=== PATIENT | male | born 1985 | race Caucasian/White ===

== ENCOUNTER 2024-01-05 11:42 | Emergency (ER) | payer OTHER ==
[~2024-01-05] VITALS: Ht 177.8 cm; Wt 86.6 kg
[~2024-01-05 11:42] MED LIST: AMOX TR-K CLV1 EAC1 PO; BUPRENORPHIN-N1 EACH SL; IBU800 MG PO; METHADONE H5 MG/5 ML PO; PAROXETINE HCL40 MG PO
--- OUTSIDE RECORDS SUMMARY | 2024-01-05 11:49 | XMS ---
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 - Patient eloped before treatment completed. - Patient with suicidal and/or homicidal ideations eloped. Details: Patient LWBS. CRITERIA MET - Group Notification - [facility] - 2 Visits in 30 Days CARE PROVIDERS -, Don Dental+ Dentist: Local Superintendent [facility] PHONE: [phone] -[place]- Dentist: Local Superintendent Pending Sale To [facility] PHONE: [phone] MANA BERNSTEIN Counselor: Mental Health Current PHONE: [phone] [place] PRIMARY Clinic/Center: Primary Care [facility] PHONE: [phone] [facility] PHONE: [phone] Emily has no Care Guidelines for this patient. ESantos VISIT COUNT (12 MO.) 4 [facility] [place] TOTAL 4 NOTE: Visits indicate total known visits. 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 [place] TYPE: Emergency COMPLAINT: - WITHDRAWAL INPATIENT VISIT TRACKING (12 MO.) No inpatient visits to display in this time frame [id number]
[2024-01-05 12:31] LABS: BASOPHILS 0.7 % (0-2); EOSINOPHILS 1.4 % (0-6); HEMATOCRIT 38.6 % (35.0-50.0); HEMOGLOBIN 12.9 g/dL (12.0-18.0); LYMPHOCYTES 23.1 % (24-44); MCH 28.7 (27-36); MCHC 33.4 g/dl (30-36); MCV 86.1 fl (81-99); NEUTROPHILS 67.8 % (39-80); PLATELET COUNT 313 K/uL (140-440); RBC 4.48 M/ul (4.3-5.7); RDW 13.3 (10.5-15.0)
[2024-01-05 12:54] LABS: ACETAMINOPHEN 0 ug/mL (10-30); ALBUMIN 3.3 g/dL (3.4-5.0); ALCOHOL, MEDICAL <3 ng/dL (<3); ALKALINE PHOSPHATASE 110 U/L (46-116); ALT (SGPT) 25 U/L (14-59); ANION GAP 9.6 (7-21); AST (SGOT) 15 U/L (15-37); BILIRUBIN, TOTAL 0.2 ng/dL (0.2-1.0); BUN/CREATININE RATIO 21.59 (6.0-28.6); CALCIUM 8.9 mg/dL (8.5-10.1); CARBON DIOXIDE 32 mmol/L (21-32); CHLORIDE 105 mmol/L (98-107); CREATININE, SERUM 0.88 mg/dL (0.70-1.30); GLOMERULAR FILTRATION RATE,EST 111 mL/min (>60); POTASSIUM 4.6 mmol/L (3.5-5.1); PROTEIN, TOTAL 6.6 g/dL (6.4-8.2); SALICYLATE 1.4 mg/dL (2.8-20.0); TSH, 3RD GENERATION 0.749 uIU/mL (0.358-3.740); UREA NITROGEN 19 mg/dL (7-18)
[2024-01-05 15:24] LABS: BILIRUBIN, URINE NEGATIVE (negative); BLOOD/HGB, URINE NEGATIVE (Negative); KETONE, URINE NEGATIVE (Negative); LEUK ESTERASE, URINE NEGATIVE (negative); NITRITE, URINE NEGATIVE (negative); PH, URINE 5.5 (5-7)
[2024-01-05 15:58] LABS: AMPHETAMINES, URINE NEGATIVE (NEGATIVE); BARBITURATES, URINE NEGATIVE (NEGATIVE); BENZODIAZEPINE, URINE NEGATIVE (NEGATIVE); BUPRENORPHINE, URINE NEGATIVE (NEGATIVE); CANNABINOID, URINE NEGATIVE (NEGATIVE); COCAINE, URINE NEGATIVE (NEGATIVE); FENTANYL, URINE NEGATIVE (NEGATIVE); METHADONE, URINE POSITIVE (NEGATIVE); OPIATES, URINE NEGATIVE (NEGATIVE); OXYCODONE, URINE NEGATIVE (NEGATIVE); PHENCYCLIDINE, URINE NEGATIVE (NEGATIVE)
[2024-01-05 16:17] LABS: ECSTASY, URINE NEGATIVE (NEGATIVE)
[2024-01-06] MEDS ORDERED: METHADONE H5 MG/5 ML PO (02:28)
[2024-01-06] MEDS ORDERED: METHADONE HCL 10 MG TAB PO ONE ×2 (02:30→08:00)
[2024-01-06 09:48] VITALS: BP 102/61
--- NOTE | 2024-01-06 12:00 | EKG ---
[facility] [address] [facility] [place], [place] [address] Signed Sinus bradycardia Rightward axis Borderline ECG No previous ECGs available Confirmed by Jacqueline Denton MD ([id number]) on 01/06/2024 12:00:11 PM Electronically Signed By: JACQUELINE DENTON DO 01/06/24 1200 PATIENT NAME: CROW GU Electrocardiogram DATE OF : 81 PHYSICIAN: JACQUELINE DENTON DO REPORT #: [id number] REPORT IS CONFIDENTIAL AND NOT TO BE RELEASED WITHOUT AUTHORIZATION
== END 2024-01-06 09:48 ==
LOC: ED 11:42
PROVIDERS: Emergency Medicine
DX: R45.851 Suicidal ideations (principal); Z00.8 Encounter for other general examination; Z88.6 Allergy status to analgesic agent; Z79.899 Other long term (current) drug therapy; Z11.52 Encounter for screening for COVID-19
CPT/HCPCS: 36415; 80053; 80307; 81003; 84443; 85025; 93005; 93010; 94640; 99285; G0480; U0002

== ENCOUNTER 2024-01-23 11:01 | Emergency (ER) | payer OTHER ==
[~2024-01-23] VITALS: Ht 177.8 cm; Wt 90.0 kg
--- OUTSIDE RECORDS SUMMARY | 2024-01-23 11:05 | XMS ---
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 - Patient eloped before treatment completed. - Patient with suicidal and/or homicidal ideations eloped. Details: Patient LWBS. CRITERIA MET - Group Notification - [facility] - 2 Visits in 30 Days CARE PROVIDERS -, Don Dental+ Dentist: Stock Digger [facility] PHONE: [phone] -[place]- Dentist: Stock Digger [facility] PHONE: [phone] MANA BERNSTEIN Counselor: Mental Health Current PHONE: [phone] [place] PRIMARY Clinic/Center: Primary Care [facility] PHONE: [phone] [facility] PHONE: [phone] Emily has no Care Guidelines for this patient. ESantos VISIT COUNT (12 MO.) 5 [facility] [place] TOTAL 5 NOTE: Visits indicate total known visits. ED/UCC VISIT TRACKING (12 MO.) 01/23/2024 11:01 [facility] [place] TYPE: Emergency COMPLAINT: - SUICIDAL IDEATIONS 01/05/2024 11:43 [facility] [place] TYPE: Emergency COMPLAINT: - MEDICAL CLEARANCE DIAGNOSES: - Allergy status to analgesic agent - Depression, unspecified - Encounter for other general examination - Encounter for screening for COVID-19 - Other longterm (current) drug therapy - Suicidal ideations 12/31/2023 23:13 [facility] [place] TYPE: Emergency COMPLAINT: - TOOTH PAIN DIAGNOSES: - Allergy status to analgesic agent - Other longterm (current) drug therapy - Other specified disorders of teeth and supporting structures - Periapical abscess without sinus - Suicidal ideations 11/08/2023 00:44 [facility] [place] TYPE: Emergency COMPLAINT: - DENTAL PROBLEM DIAGNOSES: - Allergy status to analgesic agent - Other terminal computer operator (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
[2024-01-23] MEDS ORDERED: PROZAC40 MG PO (11:13)
[2024-01-23] MEDS ORDERED: AMOXICILLIN/CLAVULANATE K 875 MG TAB PO ONE (11:45)
[2024-01-23 11:56] LABS: BILIRUBIN, URINE NEGATIVE (negative); BLOOD/HGB, URINE NEGATIVE (Negative); KETONE, URINE NEGATIVE (Negative); LEUK ESTERASE, URINE NEGATIVE (negative); NITRITE, URINE NEGATIVE (negative)
[2024-01-23 12:02] LABS: BASOPHILS 0.7 % (0-2); EOSINOPHILS 2.1 % (0-6); HEMATOCRIT 37.1 % (35.0-50.0); HEMOGLOBIN 12.5 g/dL (12.0-18.0); LYMPHOCYTES 23.8 % (24-44); MCHC 33.7 g/dl (30-36); MCV 86.1 fl (81-99); MONOCYTES 7.6 % (0-12); NEUTROPHILS 65.8 % (39-80); PLATELET COUNT 277 K/uL (140-440); RBC 4.31 M/ul (4.3-5.7); RDW 13.5 (10.5-15.0)
[2024-01-23 12:07] LABS: AMPHETAMINES, URINE NEGATIVE (NEGATIVE); BARBITURATES, URINE NEGATIVE (NEGATIVE); BENZODIAZEPINE, URINE NEGATIVE (NEGATIVE); BUPRENORPHINE, URINE NEGATIVE (NEGATIVE); CANNABINOID, URINE NEGATIVE (NEGATIVE); COCAINE, URINE NEGATIVE (NEGATIVE); ECSTASY, URINE NEGATIVE (NEGATIVE); FENTANYL, URINE NEGATIVE (NEGATIVE); METHADONE, URINE POSITIVE (NEGATIVE); OPIATES, URINE NEGATIVE (NEGATIVE); OXYCODONE, URINE NEGATIVE (NEGATIVE); PHENCYCLIDINE, URINE NEGATIVE (NEGATIVE)
[2024-01-23 12:25] LABS: ACETAMINOPHEN 0 ug/mL (10-30); ALBUMIN 3.2 g/dL (3.4-5.0); ALBUMIN/GLOBULIN RATIO 0.97 (1.1-2.4); ALCOHOL, MEDICAL <3 ng/dL (<3); ALKALINE PHOSPHATASE 125 U/L (46-116); ALT (SGPT) 77 U/L (14-59); ANION GAP 10.4 (7-21); AST (SGOT) 31 U/L (15-37); BILIRUBIN, TOTAL 0.2 ng/dL (0.2-1.0); CARBON DIOXIDE 32 mmol/L (21-32); CHLORIDE 105 mmol/L (98-107); GLOMERULAR FILTRATION RATE,EST 115 mL/min (>60); POTASSIUM 4.4 mmol/L (3.5-5.1); PROTEIN, TOTAL 6.5 g/dL (6.4-8.2); TSH, 3RD GENERATION 0.709 uIU/mL (0.358-3.740); UREA NITROGEN 28 mg/dL (7-18)
[2024-01-23] MEDS ORDERED: NICOTINE POLACRILEX 4 MG LOZENGE BUCCAL PRN (14:00)
[2024-01-23] MEDS ORDERED: NICOTINE 21 MG/24 HR 1 EA TDSY TD ONE (14:00)
[2024-01-23] MEDS ORDERED: ZOLPIDEM TARTRATE 5 MG TAB PO ONE (22:00)
[2024-01-24] MEDS ORDERED: FLUOXETINE HCL 20 MG CAP PO SCH (10:33)
[2024-01-24] MEDS ORDERED: METHADONE HCL 10 MG TAB PO SCH (10:33)
[2024-01-24] MEDS ORDERED: AMOXICILLIN 500 MG CAP PO SCH (15:00)
[2024-01-24 15:06] VITALS: BP 121/75
--- NOTE | 2024-01-24 20:28 | EKG ---
[facility] [address] [facility] [place], [place] [address] Signed Sinus bradycardia Otherwise normal ECG When compared with ECG of 05-JAN-2024 12:14, No significant change was found Confirmed by Bladimir Lopez MD ([id number]) on 01/24/2024 8:28:00 PM Electronically Signed By: BLADIMIR LOPEZ MD 01/24/242027 PATIENT NAME: CROW GU Electrocardiogram DATE OF : 81 PHYSICIAN: BLADIMIR LOPEZ MD REPORT #: [id number] REPORT IS CONFIDENTIAL AND NOT TO BE RELEASED WITHOUT AUTHORIZATION
== END 2024-01-24 15:09 ==
LOC: ED 11:01
PROVIDERS: Emergency Medicine
DX: R45.851 Suicidal ideations (principal); K04.7 Periapical abscess without sinus; Z88.6 Allergy status to analgesic agent; Z79.899 Other long term (current) drug therapy
CPT/HCPCS: 36415; 80053; 80307; 81003; 84443; 85025; 93005; 93010; 99285; G0480; U0002

== ENCOUNTER 2024-02-23 20:48 | Emergency (ER) | payer OTHER ==
[~2024-02-23] VITALS: Ht 177.8 cm; Wt 98.0 kg
[~2024-02-23 20:48] MED LIST changes: +PROZAC40 MG PO
--- OUTSIDE RECORDS SUMMARY | 2024-02-23 20:54 | XMS ---
PreManage Notification: CROW GU Security Crna Events 1 event(s) in the past 18 months Most recent security events: Elopement at [facility] 04/27/2023 11:55 - Patient eloped with IV in place. - Patient eloped before treatment completed. - Patient with suicidal and/or homicidal ideations eloped. Details: Patient LWBS. CRITERIA MET - Group Notification CARE PROVIDERS -, Don Dental+ Dentist: Email Marketing Assistant [facility] PHONE: [phone] -, [place]- Dentist: Email Marketing Assistant [facility] PHONE: [phone] MANA BERNSTEIN Counselor: Mental Health Current PHONE: [phone] [place] PRIMARY Clinic/Center: Primary Care [facility] PHONE: [phone] [facility] PHONE: [phone] Emily has no Care Guidelines for this patient. Lana VISIT COUNT (12 MO.) 6 А[facility]РЕЙ [place] TOTAL 6 NOTE: Visits indicate total known visits. ED/C VISIT TRACKING (12 MO.) 02/23/2024 20:48 [facility] [place] TYPE: Emergency COMPLAINT: - COLD SYMPTOMS 01/23/2024 11:01 [facility] [place] TYPE: Emergency COMPLAINT: - SUICIDAL IDEATIONS DIAGNOSES: - Allergy status to analgesic agent - Other tin worker (current) drug therapy - Periapical abscess without sinus - Suicidal ideations 01/05/2024 11:43 [facility] [place] TYPE: Emergency COMPLAINT: - MEDICAL CLEARANCE DIAGNOSES: - Allergy status to analgesic agent - Depression, unspecified - Encounter for other general examination - Encounter for screening for COVID-19 - Other tin worker (current) drug therapy - Suicidal ideations 12/31/2023 23:13 [facility] [place] TYPE: Emergency COMPLAINT: - TOOTH PAIN DIAGNOSES: - Allergy status to analgesic agent - Other tin worker (current) drug therapy - Other specified disorders of teeth and supporting structures - Periapical abscess without sinus - Suicidal ideations 11/08/2023 00:44 [facility] [place] TYPE: Emergency COMPLAINT: - DENTAL PROBLEM DIAGNOSES: - Allergy status to analgesic agent - Other correction (current) drug therapy - Other specified disorders of teeth and supporting structures - Periapical abscess without sinus 04/27/2023 11:55 [facility] [place] TYPE: Emergency COMPLAINT: - WITHDRAWAL INPATIENT VISIT TRACKING (12 MO.) No inpatient visits to display in this time frame [id number]
[2024-02-23] MEDS ORDERED: AMOXICILLIN/CLAVULANATE K 875 MG HOME.PACK PO ONE (21:30)
[2024-02-23 21:45] VITALS: BP 167/82
== END 2024-02-23 21:40 | disposition home or self-care (01) ==
LOC: ED 20:48
DX: K04.7 Periapical abscess without sinus (principal); Z88.6 Allergy status to analgesic agent; Z79.899 Other long term (current) drug therapy
CPT/HCPCS: 99282

== ENCOUNTER 2024-03-12 16:27 | Emergency (ER) | payer OTHER ==
[~2024-03-12] VITALS: Ht 177.8 cm; Wt 103.0 kg
--- OUTSIDE RECORDS SUMMARY | 2024-03-12 16:33 | XMS ---
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 - Patient eloped before treatment completed. - Patient with suicidal and/or homicidal ideations eloped. Details: Patient LWBS. CRITERIA MET - 6 ED Visits in 6 Months - Group Notification - [facility] - 2 Visits in 30 Days CARE PROVIDERS MANA BERNSTEIN Counselor: Mental Health Current PHONE: [phone] LILI[place] PRIMARY Clinic/Center: Primary Care [facility] CARE CLINIC PHONE: [phone] DAMARIS [facility] Current PHONE: [phone] Emily has no Care Guidelines for this patient. Lana VISIT COUNT (12 MO.) 7 А[facility]ДРЕЙ [place] TOTAL 7 NOTE: Visits indicate total known visits. ED/UCC VISIT TRACKING (12 MO.) 03/12/2024 16:27 [facility] [place] TYPE: Emergency COMPLAINT: - DENTAL PAIN 02/23/2024 20:48 [facility] [place] COMPLAINT: - COLD SYMPTOMS DIAGNOSES: - Allergy status to analgesic agent - Fever, unspecified - Headache, unspecified - Other lesions of oral mucosa - Other correction (current) drug therapy - Periapical abscess without sinus 01/23/2024 11:01 [facility] [place] COMPLAINT: - SUICIDAL IDEATIONS DIAGNOSES: - Allergy status to analgesic agent - Other roasterman (current) drug therapy - Periapical abscess without sinus - Suicidal ideations 01/05/2024 11:[address] [facility] [place] TYPE: Emergency COMPLAINT: - MEDICAL CLEARANCE DIAGNOSES: - Allergy status to analgesic agent - Depression, unspecified - Encounter for other general examination - Encounter for screening for COVID-19 - Other roasterman (current) drug therapy - Suicidal ideations 12/31/2023 23:[address] [facility] [place] TYPE: Emergency COMPLAINT: - TOOTH PAIN DIAGNOSES: - Allergy status to analgesic agent - Other roasterman (current) drug therapy - Other specified disorders of teeth and supporting structures - Periapical abscess without sinus - Suicidal ideations 11/08/2023 00:44 [facility] [place] TYPE: Emergency COMPLAINT: - DENTAL PROBLEM DIAGNOSES: - Allergy status to analgesic agent - Other correction (current) drug therapy - Other specified disorders of teeth and supporting structures - Periapical abscess without sinus 04/27/2023 11:55 [facility] [place] TYPE: Emergency COMPLAINT: - WITHDRAWAL INPATIENT VISIT TRACKING (12 MO.) No inpatient visits to display in this time frame [email or web address]
[2024-03-12] MEDS ORDERED: KETOROLAC TROMETHAMINE 60 MG/2 ML VIAL IM ONE (18:15)
[2024-03-12] MEDS ORDERED: AMOXICILLIN/CLAVULANATE K 875 MG TAB PO ONE (18:15)
[2024-03-12] MEDS ORDERED: AMOX TR-K CLV1 EAC1 PO (18:26)
[2024-03-12] MEDS ORDERED: KETOROLAC TROME10 MG PO (18:26)
[2024-03-12 18:31] VITALS: BP 131/80
[2024-03-13] MEDS ORDERED: AMOXICILLIN/CLAVULANATE K 875 MG TAB PO SCH (08:00)
== END 2024-03-12 18:32 | disposition home or self-care (01) ==
LOC: ED 16:27
DX: K04.7 Periapical abscess without sinus (principal); K02.9 Dental caries, unspecified; Z88.6 Allergy status to analgesic agent; Z79.899 Other long term (current) drug therapy
CPT/HCPCS: 96372; 99282; J1885

== ENCOUNTER 2025-04-01 17:20 | Emergency (ER) | payer OTHER ==
[~2025-04-01] VITALS: Ht 177.8 cm; Wt 85.0 kg
[~2025-04-01 17:20] MED LIST changes: +KETOROLAC TROME10 MG PO
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
[2025-04-01 17:59] LABS: BASOPHILS 0.3 % (0.2-1.2); EOSINOPHILS 0 % (0.8-7.0); LYMPHOCYTES 10.2 % (21.8-53.1); MCH 27.9 PG (25.7-32.2); MCHC 32.9 g/dL (32.3-36.5); MCV 84.7 fL (79.0-92.2); MONOCYTES 3.2 % (5.3-12.2); NEUTROPHILS 86.2 % (34.0-67.9); RBC 5.02 M/uL (4.63-6.08)
[2025-04-01] MEDS ORDERED: BUPRENORPHINE-1 EACH SL (18:02)
[2025-04-01] MEDS ORDERED: WELLBUTRIN XL150 MG PO (18:03)
[2025-04-01 18:28] LABS: ALCOHOL, MEDICAL <3 mg/dL (<3); ALT (SGPT) 20 U/L (14-59); AST (SGOT) 12 U/L (15-37); GLOMERULAR FILTRATION RATE,EST 115 mL/min (>60); PROTEIN, TOTAL 8.2 g/dL (6.4-8.2); TSH, 3RD GENERATION 0.185 uIU/mL (0.358-3.740); UREA NITROGEN 11 mg/dL (7-18)
[2025-04-01 21:00] LABS: BLOOD/HGB, URINE NEGATIVE (Negative); KETONE, URINE NEGATIVE (Negative); LEUK ESTERASE, URINE NEGATIVE (negative); NITRITE, URINE NEGATIVE (negative)
[2025-04-01 21:15] LABS: AMPHETAMINES, URINE POSITIVE (NEGATIVE); BARBITURATES, URINE NEGATIVE (NEGATIVE); BENZODIAZEPINE, URINE NEGATIVE (NEGATIVE); CANNABINOID, URINE NEGATIVE (NEGATIVE); COCAINE, URINE NEGATIVE (NEGATIVE); ECSTASY, URINE POSITIVE (NEGATIVE); FENTANYL, URINE POSITIVE (NEGATIVE); METHADONE, URINE NEGATIVE (NEGATIVE); OPIATES, URINE NEGATIVE (NEGATIVE); OXYCODONE, URINE NEGATIVE (NEGATIVE); PHENCYCLIDINE, URINE NEGATIVE (NEGATIVE)
[2025-04-01] MEDS ORDERED: LORazepam 2 MG/ML VIAL IM ONE (22:30)
[2025-04-01] MEDS ORDERED: ONDANSETRON 4 MG TAB ODT SL ONE (22:30)
[2025-04-01] MEDS ORDERED: DIPHENOXYLATE/ATROPINE 1 EA TAB PO ONE (23:45)
[2025-04-02] MEDS ORDERED: PROCHLORPERAZINE EDISYLATE 10 MG/2 ML VIAL IM ONE (04:00)
[2025-04-02] MEDS ORDERED: NICOTINE POLACRILEX 4 MG LOZENGE BUCCAL PRN (14:45)
[2025-04-03] MEDS ORDERED: INSULIN GLARGINE-YFGN 100 UNIT/ML ML SUB-Q SCH (09:00)
== END 2025-04-03 10:06 | disposition home or self-care (01) ==
LOC: ED 17:20
PROVIDERS: Emergency Medicine
DX: R45.851 Suicidal ideations (principal); Z79.899 Other long term (current) drug therapy; Z88.6 Allergy status to analgesic agent
CPT/HCPCS: 36415; 80053; 80307; 81003; 84443; 85025; 96372; 99285; A9270; G0480; J0780; J1790; J2060